=== PATIENT | female | born 1955 | race American Indian/Alaskan Native ===

== ENCOUNTER 2019-04-30 10:39 | Emergency (ER) | payer MEDICARE ==
[2019-04-30 10:49] VITALS: BP 156/99
--- NOTE | 2019-04-30 13:28 | Event Note ---
ED Screening Note Date of service: 04/30/19 Time: 13:23 ED Screening Note: 63 y o left flank pain x 4 days denies f,n,d fequent ua, frequent bm This initial assessment/diagnostic orders/clinical plan/treatment(s) is/are subject to change based on patients health status, clinical progression and re- assessment by fellow clinical providers in the ED. Further treatment and workup at subsequent clinical providers discretion. Patient/guardian urged not to elope from the ED as their condition may be serious if not clinically assessed and managed. Initial orders include: ua,
[2019-04-30 14:12] LABS: Basophils # (Auto) 0.1 K/mm3 (0.0-0.1); Basophils % (Auto) 1.1 % (0.0-1.8); Eosinophils # (Auto) 0.1 K/mm3 (0.0-0.4); Eosinophils % (Auto) 1.3 % (0.0-4.3); Hematocrit 46.6 % (30.3-42.9); Lymphocytes # (Auto) 2.3 K/mm3 (1.2-5.4); Lymphocytes % (Auto) 29.5 % (13.4-35.0); Mean Corpuscular HGB Conc 34 % (30-34); Mean Corpuscular Volume 90 fl (79-97); Monocytes # (Auto) 0.5 K/mm3 (0.0-0.8); Monocytes % (Auto) 6.9 % (0.0-7.3); Platelet Count 421 K/mm3 (140-440); Red Blood Count 5.16 M/mm3 (3.65-5.03); Red Cell Distribution Width 13.6 % (13.2-15.2)
[2019-04-30 14:35] LABS: Alanine Aminotransferase 17 units/L (7-56); BUN/Creatinine Ratio 12; Blood Urea Nitrogen 11 mg/dL (7-17); Calcium 10.4 mg/dL (8.4-10.2); Hemolysis Index 8
[2019-04-30] MEDS ORDERED: IBUPROFEN 800 MG TAB PO ONE (15:04)
--- NOTE | 2019-04-30 15:05 | Emergency Department Report ---
ED Back Pain/Injury HPI - General Chief Complaint: Back Pain/Injury Stated Complaint: LFT SIDE BACK PAIN Time Seen by Provider: 04/30/19 14:33 Source: patient Limitations: No Limitations - History of Present Illness Initial Comments: 63 yo comes to ER with dysuria and l flank pain. No n/v/d. No fever or chillls. No fall or trauma. MD Complaint: back pain Similar Symptoms Previously: Yes Place: home Improves With: none Worsens With: none Associated Symptoms: denies other symptoms - Related Data Previous Rx's Medication Instructions Recorded Last Taken Type Ciprofloxacin HCl [Ciprofloxacin 500 mg PO Q12HR #10 tab 04/30/19 Unknown Rx TAB] Allergies Allergy/AdvReac Type Severity Reaction Status Date / Time No Known Allergies Allergy Verified 04/30/19 15:07 ED Review of Systems ROS: Stated complaint: LFT SIDE BACK PAIN Other details as noted in HPI Comment: All other systems reviewed and negative ED Past Medical Hx - Past Medical History Medical history: diabetes, hypertension Psychiatric history: no pertinent history 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 No distress. Alert and acting appropriately. Back/Abdomen: No Abdominal Tenderness, No Perithoracic Tenderness, No Perilumbar Tenderness, No Sacroiliac Tenderness, No Flank Tenderness, No Straight Leg Raise Pain Neuro: Yes Normal Sensation, Yes Normal DTR's, Yes Normal Gait, No Motor Weakness ED Course Vital Signs 04/30/19 10:47 Temperature 97.7 F Pulse Rate 86 Respiratory 16 Rate Blood Pressure 156/99 O2 Sat by Pulse 96 Oximetry Ed Back Pain Tests - Tests Tests: Abnormal UA ED Medical Decision Making - Lab Data Result diagrams: 04/30/19 14:03 04/30/19 14:03 - Medical Decision Making Vital Signs 04/30/19 10:47 Temperature 97.7 F Pulse Rate 86 Respiratory 16 Rate Blood Pressure 156/99 O2 Sat by Pulse 96 Oximetry Vital Signs - 24 hr 04/30/19 10:47 Temperature 97.7 F Pulse Rate 86 Respiratory 16 Rate Blood Pressure 156/99 O2 Sat by Pulse 96 Oximetry Labs 04/30/19 04/30/19 04/30/19 14:03 14:03 15:00 WBC 7.6 RBC 5.16 H Hgb 16.0 H Hct 46.6 H MCV 90 MCH 31 MCHC 34 RDW 13.6 Plt Count 421 Lymph % (Auto) 29.5 Miller % (Auto) 6.9 Eos % (Auto) 1.3 Baso % (Auto) 1.1 Lymph # 2.3 Miller # 0.5 Eos # 0.1 Baso # 0.1 Seg Neutrophils % 61.2 Seg Neutrophils # 4.7 Sodium 137 Potassium 3.8 Chloride 98.2 Carbon Dioxide 23 Anion Gap 20 BUN 11 Creatinine 0.9 Estimated GFR > 60 BUN/Creatinine Ratio 12 Glucose 197 H Calcium 10.4 H Total Bilirubin 0.50 AST 15 ALT 17 Alkaline Phosphatase 108 Total Protein 8.1 Albumin 4.0 Albumin/Globulin Ratio 1.0 Urine Color Yellow Urine Turbidity Slightly-cloudy Urine pH 5.0 Ur Specific [place] 1.008 Urine Protein <15 mg/dl Urine Glucose (UA) Neg Urine Ketones Neg Urine Blood Neg Urine Nitrite Neg Urine Bilirubin Neg Urine Urobilinogen < 2.0 Ur Leukocyte Esterase Neg Urine WBC (Auto) 1.0 Urine RBC (Auto) < 1.0 U Epithel Cells (Auto) 4.0 Urine Bacteria (Auto) 1+ neg straight leg raise abd snt no cva tenderness taking po VSS labs noted urine noted pt states she has been drinking a lot of water, cranberry juice and taking azo. ua noted will tx for dysuria/presumed uti pt dc home in [place] with rx and pcp follow up. she verbalizes understanding of plan of care. - Differential Diagnosis ro uti/stone Critical care attestation.: If time is entered above; I have spent that time in minutes in the direct care of this critically ill patient, excluding procedure time. ED Disposition Clinical Impression: Dysuria, History of diabetes mellitus, type II, Proteinuria Disposition: DC-01 TO HOME OR SELFCARE Is pt being admited?: No Does the pt Need Aspirin: No Condition: Stable Instructions: Urinary Tract Infection in Women (ED) Additional Instructions: stay well hydrated motrin or tylenol for pain or fever med as ordered today follow up with pcp in 48 hours to be sure you are feeling better referral below diet and activity as tolerated Prescriptions: Ciprofloxacin HCl [Ciprofloxacin TAB] 500 mg PO Q12HR #10 tab Referrals: CARSON JOHNSON MD [Primary Care Provider] - 3-5 Days CARBUCCIA,NUZHAT, MD [Staff Physician] - 3-5 Days Time of Disposition: 15:53
[2019-04-30 15:26] LABS: Bacteria,Urine 1+ /HPF (Negative); Bilirubin,Urine NEG (Negative); Blood,Urine NEG (Negative); Color,Urine Yellow (Yellow); Protein,Urine <15 mg/dL mg/dL (Negative); RBC,Urine < 1.0 /HPF (0.0-6.0); Urobilinogen,Urine < 2.0 mg/dL (<2.0)
== END 2019-04-30 16:10 | disposition home or self-care (01) ==
LOC: ED 10:39
DX: R30.0 Dysuria (principal); R80.9 Proteinuria, unspecified; E11.8 Type 2 diabetes mellitus with unspecified complications; I10 Essential (primary) hypertension
CPT/HCPCS: 36415; 80053; 81001; 85025; 99283